=== PATIENT | male | born 1990 | race Caucasian/White ===

== ENCOUNTER 2020-11-30 20:37 | Emergency (ER) | payer OTHER ==
[~2020-11-30] VITALS: Ht 175.3 cm; Wt 83.5 kg
[2020-11-30 20:40] VITALS: BP 146/83
--- NOTE | 2020-12-05 16:07 | PATH ---
[facility] [place] [address] PATHOLOGY RPT PROCEDURE Name: DOMENICO PALACIOS Room #: DEP BOLIVAR [place]#: [id number] Admission: 11/30/20 Date of : 89 Discharge: 12/01/20 Report #: [id number] Path Case #: [id number] [facility] Accession Number: [id number] . 01 Material submitted: . esophagus - RANDOM ESOPHAGEAL BIOPSY R/O EOE. Modifiers: RANDOM . 01 Clinical history: . EGD ESOPHAGEAL FOOD BOLUS . 02 Diagnosis: Squamous mucosa, random esophagus, rule out eosinophilic esophagitis, endoscopic biopsy: - Mild active esophagitis with increased intraepithelial eosinophils up to 33/hpf, compatible with eosinophilic esophagitis, see comment. - Negative for intestinal metaplasia or dysplasia. (IUV:pit; 12/05/2020) QTP 12/05/2020 1450 Local . 02 Comment: Examination of the esophageal biopsy tissue shows squamous mucosa with a marked number of intraepithelial eosinophils. Although eosinophils are commonly encountered in inflammation due to reflux esophagitis, the eosinophils in the present specimen are numerous, exceeding 22/hpf. Apart from reflux esophagitis, potential etiologies for the histologic pattern include allergic and collagen vascular diseases, fungal or parasitic infections, and eosinophilic esophagitis (idiopathic). Please correlate with clinical and endoscopic findings. (IUV:pit; 12/05/2020) . 02 Electronically signed: . Adina Hernández MD, Pathologist NPI- [id number] . 01 Gross description: . Received in formalin labeled "Domenico Palacios and random esophageal biopsy rule out EOE". Received are multiple minute sewell-tabares soft tissue fragments ranging from 0.1-0.3 cm. The specimen is entirely submitted in cassette A1.([facility]; 12/04/2020) [facility] 12/04/2020 2224 Local . 02 Pathologist provided ICD-10: K20.90 . 02 CPT . 200775 [address] [address] PATHOLOGY RPT PROCEDURE Name: DOMENICO PALACIOS Room #: [facility] Karthik#: [id number] Admission: 11/30/20 Date of : 89 Discharge: 12/01/20 Report #: [id number] Path Case #: [id number] Specimen Comment: A courtesy copy of this report has been sent to [phone] Specimen Comment: Report sent to Performed at: [address] [facility] [address], [place], [place] [id number] MD Dmitriy Hodge MD Phone: [phone] Performed at: [address] [facility] [id number] MD Adina Hernández MD Phone: [phone]
== END 2020-12-01 01:52 | disposition home or self-care (01) ==
LOC: ER 20:37 → EROBS 22:46 → ER 22:46 → EROBS 12-01 09:37 → TBACV 12-01 09:37
DX: T18.128A Food in esophagus causing other injury, initial encounter (principal); Z20.822 Contact with and (suspected) exposure to COVID-19; X58.XXXA Exposure to other specified factors, initial encounter; Y93.89 Activity, other specified; Y92.89 Other specified places as the place of occurrence of the external cause; Y99.8 Other external cause status
CPT/HCPCS: 10194; 62110; 62900; 70005